=== PATIENT | male | born 1980 | race American Indian/Alaskan Native ===

== ENCOUNTER 2021-11-14 14:11 | Emergency (ER) | payer SELFPAY ==
[2021-11-14] MEDS ORDERED: LIDOCAINE (1%) 10 MG/1 ML VIAL 20 ML MDV INFILTRATI ONE (17:23)
--- NOTE | 2021-11-14 17:42 | Emergency Department Report ---
ED Extremity Problem HPI - General Chief complaint: Extremity Injury, Upper Stated complaint: POSS INFECTION FINGER/TONGUE Source: patient Mode of arrival: Ambulatory Limitations: No Limitations - History of Present Illness Initial comments: Patient is a 41-year-old -[place] male with no past medical history presents to the ED with complaint of acute onset persistent painful swollen distal right middle finger with mild erythema and fluctuant maculopapular rash for the last 1 week. Patient states that he is a habitual finger biter and also complains of right lateral tongue ulcerated lesion for the last 1 week. Patient denies fever, chills, nausea and vomiting, dizziness, syncope, traumatic injury, numbness and tingling or weakness of right hand, shortness of breath, nausea and vomiting, neck pain or fall. MD Complaint: extremity pain (Distal right middle finger swelling and pain), extremity swelling (Distal right middle finger swelling and pain), joint swelling -: Sudden, week(s) (1) Location: right, upper extremity (Right middle finger) History of Same: No -: Yes arthralgia Radiation: distal Severity scale (0 -10): 7 Quality: aching, sharp Consistency: constant Improves with: nothing Worsens with: weight bearing, palpation Associated Symptoms: denies other symptoms, arthralgias (Distal right middle finger pain), rash (Swollen, painful mild erythematous rash on distal right middle finger). denies: chest pain, shortness of breath, fever, myalgias - Related Data Previous Rx's Medication Instructions Recorded Last Taken Type Ibuprofen [Motrin] 800 mg PO Q8HR PRN #30 tablet 11/14/21 Unknown Rx cephALEXin [Keflex] 500 mg PO Q6HR #40 capsule 11/14/21 Unknown Rx Allergies Allergy/AdvReac Type Severity Reaction Status Date / Time No Known Allergies Allergy Verified 11/14/21 18:02 ED Review of Systems ROS: Stated complaint: POSS INFECTION FINGER/TONGUE Other details as noted in HPI Constitutional: denies: chills, fever Eyes: denies: eye pain, eye discharge, vision change ENT: other (Mild ulcerated lesion on lateral right tongue). denies: ear pain, throat pain Respiratory: denies: cough, shortness of breath, wheezing Cardiovascular: denies: chest pain, palpitations Endocrine: no symptoms reported Gastrointestinal: denies: abdominal pain, nausea, vomiting, diarrhea Genitourinary: denies: urgency, dysuria Musculoskeletal: joint swelling (Distal right middle finger swelling and pain), arthralgia (Distal right middle finger pain and swelling). denies: back pain Skin: rash (Mild erythematous maculopapular rash on distal right middle finger), change in color. denies: lesions Neurological: denies: headache, weakness, paresthesias Psychiatric: denies: anxiety, depression Hematological/Lymphatic: denies: easy bleeding, easy bruising ED Past Medical Hx - Past Medical History Previous Medical History?: No - Surgical History Past Surgical History?: No - Medications Home Medications: Home Medications Medication Instructions Recorded Confirmed Last Taken Type Ibuprofen [Motrin] 800 mg PO Q8HR PRN #30 tablet 11/14/21 Unknown Rx cephALEXin [Keflex] 500 mg PO Q6HR #40 capsule 11/14/21 Unknown Rx ED Physical Exam - General Limitations: No Limitations General appearance: alert, in no apparent distress - Head Head exam: Present: atraumatic, normocephalic, normal inspection - Eye Eye exam: Present: normal appearance, PERRL, EOMI Pupils: Present: normal accommodation - ENT ENT exam: Present: mucous membranes moist, TM's normal bilaterally, normal external ear exam, other (Ulcerated tender lesion on the lateral right tongue) - Neck Neck exam: Present: normal inspection, full ROM. Absent: tenderness - Respiratory Respiratory exam: Present: normal lung sounds bilaterally. Absent: respiratory distress, wheezes, rales, rhonchi, chest wall tenderness, accessory muscle use, decreased breath sounds, prolonged expiratory - Cardiovascular Cardiovascular Exam: Present: regular rate, normal rhythm, normal heart sounds. Absent: systolic murmur, diastolic murmur, rubs, gallop - GI/Abdominal GI/Abdominal exam: Present: soft, normal bowel sounds. Absent: tenderness, guarding, rebound, hyperactive bowel sounds, hypoactive bowel sounds, organomegaly, mass - Extremities Exam Extremities exam: Present: normal inspection, full ROM, tenderness (Palpable tenderness of distal right middle finger due to a swollen mild erythematous rash), normal capillary refill. Absent: pedal edema, joint swelling, calf tenderness - Back Exam Back exam: Present: normal inspection, full ROM. Absent: tenderness, CVA tenderness (R), CVA tenderness (L), muscle spasm, paraspinal tenderness, vertebral tenderness - Neurological Exam Neurological exam: Present: alert, oriented X3, CN II-XII intact, normal gait, reflexes normal - Psychiatric Psychiatric exam: Present: normal affect, normal mood - Skin Skin exam: Present: warm, dry, intact, normal color. Absent: rash ED Course Vital Signs 11/14/21 16:23 Temperature 98.0 F Pulse Rate 72 Respiratory 18 Rate Blood Pressure 165/113 O2 Sat by Pulse 98 Oximetry - I & D Right Distal Finger Type of Procedure: Simple Site: Distal right middle finger Blade Size: 11 I & D Procedure: betadine prep, sterile drapes applied, gauze wick placed Progress: The area was cleaned with normal saline and Betadine solutions. 2% lidocaine solution was used as a local anesthesia by infiltration of the area. When anesthesia was fully achieved, the swollen fluctuant rash was incised and dr ained with scalpel blade #11 and copious thick yellowish purulent discharge drained from the wound. The wound was then debrided extensively with normal saline and packed with sterile gauze. The right middle finger wound was dressed appropriately and the patient tolerated the procedure well. Patient will discharge home on pain medication and antibiotics and advised to follow-up with his primary care physician in 7 to 10 days for reevaluation or return to the ED immediately if symptoms get worse. ED Medical Decision Making - Medical Decision Making This is a 41-year-old -[place] male with no past medical history presents to the ED with complaint of acute onset persistent painful swollen distal right middle finger with mild erythema and fluctuant maculopapular rash for the last 1 week. Patient states that he is a habitual finger biter and also complains of right lateral tongue ulcerated lesion for the last 1 week. The area was cleaned with normal saline and Betadine solutions. 2% lidocaine solution was used as a local anesthesia by infiltration of the area. When anesthesia was fully achieved, the swollen fluctuant rash was incised and drained with scalpel blade #11 and copious thick yellowish purulent discharge drained from the wound. The wound was then debrided extensively with normal saline and packed with sterile gauze. The right middle finger wound was dressed appropriately and the patient tolerated the procedure well. Patient will discharge home on pain medication and antibiotics and advised to follow-up with his primary care physician in 7 to 10 days for reevaluation or return to the ED immediately if symptoms get worse. - Differential Diagnosis Cellulitis; paronychia; folliculitis; Critical care attestation.: If time is entered above; I have spent that time in minutes in the direct care of this critically ill patient, excluding procedure time. ED Disposition Clinical Impression: Cellulitis of right middle finger, Paronychia of right middle finger, Leukoplakia of oral cavity Disposition: 01 HOME / SELF CARE / HOMELESS Is pt being admited?: No Does the pt Need Aspirin: No Condition: Stable Instructions: Cellulitis, Adult, [id number], Paronychia, [id number], Leukoplakia Additional Instructions: Take medication with food, drink plenty of fluids, follow-up with your primary care physician in 7 to 10 days for reevaluation. Return to the ED immediately if symptoms get worse. Prescriptions: cephALEXin [Keflex] 500 mg PO Q6HR #40 capsule Ibuprofen [Motrin] 800 mg PO Q8HR PRN #30 tablet PRN Reason: Pain , Severe (7-10) Referrals: [facility] [Provider Group] - 7-10 days Time of Disposition: 17:43 Print Language: [place]
[2021-11-14] MEDS ORDERED: LIDOCAINE (2%) 20 MG/1 ML VIAL 20 ML MDV INFILTRATI ONE (18:15)
[2021-11-14 18:26] VITALS: BP 140/88
== END 2021-11-14 18:25 | disposition home or self-care (01) ==
LOC: ED 14:11
DX: L03.011 Cellulitis of right finger (principal); K13.21 Leukoplakia of oral mucosa, including tongue
CPT/HCPCS: 10060; 99282; J3490